=== PATIENT | female | born 1985 ===

== ENCOUNTER 2016-04-11 13:58 | Emergency (ER) | payer OTHER ==
[2016-04-11 13:59] VITALS: O2SAT 100
[2016-04-11 14:11] VITALS: RESP 18; TEMP 97.6
[2016-04-11] MEDS ORDERED: SODIUM CHLORIDE 0.9% FLUSH 10 ML SOL IV PRN (14:24)
[2016-04-11] MEDS ORDERED: SODIUM CHLORIDE 0.9% 1000ML 1,000 ML IV ONE (14:24)
[2016-04-11 14:34] LABS: APPEARANCE,URINE Clear; BILIRUBIN,URINE NEGATIVE (NEGATIVE); COLOR,URINE Yellow; GLUCOSE, URINE (UA) NEGATIVE (NEGATIVE); KETONES,URINE NEGATIVE (NEGATIVE); LEUKOCYTE ESTERASE ,URINE NEGATIVE (NEGATIVE); NITRATE,URINE NEGATIVE (NEGATIVE); OCCULT BLOOD,URINE TRACE LYSED (NEG-TRACE); PH,URINE 8.5; UROBILINOGEN,URINE 0.2 (0.2-1.0 EU)
[2016-04-11 14:42] LABS: BASOPHILS % (AUTO) 1 % (0-3); EOSINOPHILS % (AUTO) 0 % (0-9); HEMATOCRIT 33 % (35-47); MEAN CORPUSCULAR HGB CONC 33.4 gm/dl (32.0-36.0); MONOCYTES % (AUTO) 5.9 % (0-12); NEUTROPHILS % (AUTO) 69.4 % (37-80)
[2016-04-11 14:44] LABS: MEAN CORPUSCULAR VOLUME 76 fL (81-99)
[2016-04-11 14:48] LABS: ALBUMIN 4.2 gm/dl (3.4-5.0); CALCIUM 8.6 mg/dl (8.5-10.1); POTASSIUM 3.9 mMol/L (3.5-5.1)
[2016-04-11 14:56] LABS: RBC,URINE NEG (0-3AV/HPF); WBC,URINE 0-1 (0-5AV/HPF)
[2016-04-11] MEDS ORDERED: ONDANSETRON HCL 4 MG/2 ML SOL IV ONE (14:57)
[2016-04-11] MEDS ORDERED: KETOROLAC TROMETHAMINE 30 MG/ML SOL IM ONE (14:58)
[2016-04-11] MEDS ORDERED: KETOROLAC TROMETHAMINE 30 MG/ML SOL ONE (15:05)
[2016-04-11] MEDS ORDERED: ONDANSETRON HCL 4 MG/2 ML SOL ONE (15:05)
[2016-04-11 17:04] VITALS: BP 120/61; PULSE 55
== END 2016-04-11 16:35 | disposition home or self-care (01) ==
LOC: ED 13:58
DX: R10.33 Periumbilical pain (principal)
CPT/HCPCS: 99285 ×3; 74177; 80053; 81001; 83690; 84703; 85025; J1885; J2405; Q9967; 36415; 96365; 96372; 96374; 99283

== ENCOUNTER 2018-04-29 13:57 | Day surgery (SDC) | payer BC, OTHER ==
[2018-04-29 14:20] VITALS: RESP 16; TEMP 99.2
[2018-04-29] MEDS ORDERED: BUPIVACAINE HCL 0.25% MPF 30 ML SOL INFIL ONE (14:35)
[2018-04-29] MEDS ORDERED: TRIAMCINOLONE ACETONIDE 40 MG/ML SUS ONE (14:35)
[2018-04-29 15:20] VITALS: O2SAT 99
[2018-04-29 15:25] VITALS: BP 105/76; PULSE 56
== END 2018-04-29 15:02 | disposition home or self-care (01) ==
LOC: SURG 13:57
PROVIDERS: ATTEND Nurse Anesthetist, Certified Registered
DX: M79.18 Myalgia, other site (principal)
CPT/HCPCS: J3300

== ENCOUNTER 2018-07-15 13:47 | Day surgery (SDC) | payer OTHER ==
[2018-07-15] MEDS ORDERED: DIAZEPAM 5 MG TAB ONE (14:15)
[2018-07-15] MEDS ORDERED: BUPIVACAINE HCL 0.5% MPF 10 ML SOL ONE (14:19)
[2018-07-15] MEDS ORDERED: SODIUM CHLORIDE 0.9% FLUSH 10 ML SOL IV ONE (14:26)
[2018-07-15 15:02] VITALS: BP 107/66; PULSE 75; RESP 14; TEMP 97.5; O2SAT 99
== END 2018-07-15 15:17 | disposition home or self-care (01) ==
LOC: SURG 13:47
PROVIDERS: ATTEND Nurse Anesthetist, Certified Registered
DX: M54.2 Cervicalgia (principal)
CPT/HCPCS: A9270-GY